=== PATIENT | female | born 1975 | race Caucasian/White ===

== ENCOUNTER 2022-02-20 11:53 | Outpatient (CLI) | payer OTHER | END 2022-02-20 11:54 | disposition home or self-care (01) | LOC: CTENTCT 11:53 | PROVIDERS: ATTEND Otolaryngology Plastic Surgery within the Head & Neck | DX: J32.9 Chronic sinusitis, unspecified (principal) | CPT/HCPCS: 70486 ==

== ENCOUNTER 2022-05-03 08:15 | Day surgery (SDC) | payer OTHER ==
[2022-05-02 09:40] VITALS: BMI 24.0
[2022-05-03] MEDS ORDERED: Oxymetazoline HCl 0.05% (30 ML BOT) ONE ×2 (10:19→11:16)
[2022-05-03] MEDS ORDERED: Famotidine/PF 20 mg/2ml Vial ONE (11:13)
[2022-05-03] MEDS ORDERED: Fentanyl 250 MCG/5 ML VIAL ONE (11:13)
[2022-05-03] MEDS ORDERED: EPINEPHrine 1 MG/ML AMP ONE (11:16)
[2022-05-03] MEDS ORDERED: Bacitracin Zinc Ointment 30 gm TUBE ONE (11:16)
[2022-05-03] MEDS ORDERED: Lidocaine 1% (PF) 30 ML VIAL ONE (11:16)
[2022-05-03] MEDS ORDERED: Dexamethasone 20 MG/5 ML VIAL ONE (11:42)
[2022-05-03] MEDS ORDERED: PROPOFOL 200 MG/20 ML VIAL ONE (11:42)
[2022-05-03] MEDS ORDERED: Ondansetron PF 4 MG/2 ML Vial ONE (11:42)
[2022-05-03] MEDS ORDERED: ePHEDrine 50 MG/ML VIAL ONE (11:42)
[2022-05-03] MEDS ORDERED: Fentanyl 100 MCG/2 ML VIAL ONE ×2 (12:39→13:33)
[2022-05-03] MEDS ORDERED: HYDROcodone/Acetaminophen 5/325 mg Tablet ONE (13:58)
== END 2022-05-03 14:30 | disposition home or self-care (01) ==
LOC: SDC 08:15
PROVIDERS: ATTEND Otolaryngology Plastic Surgery within the Head & Neck
DX: J32.9 Chronic sinusitis, unspecified (principal); J34.2 Deviated nasal septum; J34.3 Hypertrophy of nasal turbinates; J34.89 Other specified disorders of nose and nasal sinuses; E03.9 Hypothyroidism, unspecified; M26.609 Unspecified temporomandibular joint disorder, unspecified side; Z79.1 Long term (current) use of non-steroidal anti-inflammatories (NSAID); Z79.890 Hormone replacement therapy
CPT/HCPCS: J0171; J1100; J2001; J2405; J2704; J3010; J3490; S0028